=== PATIENT | male | born 1955 | race Two or more races ===

== ENCOUNTER 2022-07-23 07:54 | Day surgery (SDC) | payer OTHER | END 2022-07-23 13:30 | disposition home or self-care (01) | LOC: AMB-ENDOS 07:54 → CIR.AMB 14:15 | PROVIDERS: ATTEND Colon & Rectal Surgery | DX: K57.30 Diverticulosis of large intestine without perforation or abscess without bleeding (principal); K64.8 Other hemorrhoids; Z20.822 Contact with and (suspected) exposure to COVID-19 ==

== ENCOUNTER 2023-02-18 11:52 | Emergency (ER) | payer OTHER ==
[~2023-02-18] VITALS: Ht 175.3 cm; Wt 78.5 kg
[2023-02-18] MEDS ORDERED: ANALPRAM HC 2.530 GM RECTAL (17:53)
== END 2023-02-18 18:17 | disposition home or self-care (01) ==
LOC: ER 11:52
PROVIDERS: General Practice
DX: R10.84 Generalized abdominal pain (principal); K62.5 Hemorrhage of anus and rectum